=== PATIENT | male | born 1960 | race Caucasian/White ===

== ENCOUNTER 2018-05-02 15:52 | Inpatient (IN) | payer OTHER ==
[~2018-05-02] VITALS: Ht 182.9 cm; Wt 170.1 kg
[2018-05-02] VITALS (10 sets, daily range): BP systolic 89–129; BP diastolic 33–74
[~2018-05-02 15:52] MED LIST: PIPERACILLIN /TAZOBACTAM 2.25 G in IV D5W 50 ML IV ONE
[2018-05-02] MEDS ORDERED: IV NS 0.9% 1,000 ML BAG IV ONE ×2 (16:30→19:30)
[2018-05-02 17:00] LABS: APPEARANCE,URINE Slightly Cloudy (CLEAR); BILIRUBIN,URINE SMALL (NEGATIVE); BLOOD, URINE Negative Ery/uL (NEGATIVE); COLOR,URINE Dark (YELLOW); KETONES,URINE Negative (NEGATIVE); LEUKOCYTE ESTERASE ,URINE Negative (NEGATIVE); NITRITE, URINE Negative (NEGATIVE); PH,URINE 5.5 (5.0-8.0); PROTEIN,URINE >=300 mg/dl (NEGATIVE); UGLUCOSE 100 MG/DL mg/dL (NEGATIVE); UROBILINOGEN,URINE 0.2 EU/dL (0.2)
[2018-05-02 17:10] LABS: ABG BASE EXCESS -5.8 mmol/L; ABG OXYGEN SATURATION 93.2 % (92.0-98.5); ABG PH 7.191 (7.350-7.450); ABG PO2 72.2 mmHg (75.0-100.0); AaDO2 141.7 mmHg; MetHb 0.5 % (0.0-1.5); O2Hb 91.8 % (94.0-97.0); SITE, ABG Left Brachial; VENT MODE, BG 5L NC
[2018-05-02 17:18] LABS: BACTERIA,URINE Few /HPF (None Seen); HYALINE CASTS, URINE Moderate /LPF (None Seen); RBC,URINE NONE SEEN /HPF (0-2); SQUAMOUS EPITHELIAL CELL,UR None Seen /HPF (None Seen); URINE AMORPHOUS PHOSPHATES Few /HPF (None Seen); WBC,URINE NONE SEEN /HPF (0-3)
[2018-05-02] MEDS ORDERED: PROPOFOL 100 ML ONE ×2 (17:23→19:26)
[2018-05-02] MEDS ORDERED: SUCCINYLCHOLINE CHLORIDE 20 MG/ML VIAL IV ONE (17:30)
[2018-05-02] MEDS ORDERED: ETOMIDATE 2 MG/ML VIAL IV ONE (17:30)
[2018-05-02] MEDS ORDERED: PROPOFOL 100 ML IV PRN (18:00)
[2018-05-02 19:02] LABS: BASOPHILS # (AUTO) 0.1 /CMM (0.0-0.2); BASOPHILS % (AUTO) 0.9 % (0.0-2.0); EOSINOPHILS % (AUTO) 1.7 % (0.0-6.0); HEMATOCRIT 36 % (39-51); HEMOGLOBIN 11.4 g/dL (13.5-17.5); LYMPHOCYTES # (AUTO) 0.8 /CMM (0.8-4.8); LYMPHOCYTES % (AUTO) 12.9 % (20.0-44.0); MEAN CORPUSCULAR HGB CONC 32 g/dl (31.0-36.0); MEAN CORPUSCULAR VOLUME 98 fL (80-96); MONOCYTES # (AUTO) 0.9 /CMM (0.1-1.30); NEUTROPHILS # (AUTO) 4.5 /CMM (1.8-8.9); NEUTROPHILS % (AUTO) 70.5 % (43.0-81.0); PLATELET COUNT (AUTO) 263 /CMM (150-450); RED BLOOD CELL COUNT(AUTO) 3.64 MIL/uL (4.5-6.0); WHITE BLOOD COUNT (AUTO) 6.4 K/uL (4.3-11.0)
[2018-05-02] MEDS ORDERED: ATROPINE SULFATE 1 MG/10 ML DISP.SYRIN ONE (19:10)
[2018-05-02 19:11] LABS: CALCIUM, SERUM 9.2 mg/dL (8.5-10.1); CARBON DIOXIDE 26 mmol/L (21-32); CHLORIDE 116 mmol/L (98-107); CREATININE 3.4 mg/dL (0.6-1.3); GLUCOSE 193 mg/dL (74-106); POTASSIUM 5.2 mmol/L (3.5-5.1); SODIUM SERUM 148 mmol/L (136-145); UREA NITROGEN, BLOOD 34 mg/dL (7-18)
[2018-05-02 19:25] LABS: ACETAMINOPHEN 0 ug/ml (10-30); ALANINE AMINOTRANSFERASE 27 U/L (12-78); ALBUMIN 2.4 g/dL (3.4-5.0); ALCOHOL, BLOOD < 3 mg/dL (0-0); ALKALINE PHOSPHATASE 127 U/L (46-116); ASPARTATE AMINOTRANSFERASE 33 U/L (15-37); BILIRUBIN,DIRECT 0.2 mg/dL (0.0-0.2); BILIRUBIN,TOTAL 0.5 mg/dL (0.2-1.0)
[2018-05-02 19:26] LABS: SALICYLATE 0.6 mg/dL (2.8-20.0)
[2018-05-02] MEDS ORDERED: ATROPINE SULFATE 1 MG/10 ML DISP.SYRIN IV ONE (19:30)
[2018-05-02] MEDS ORDERED: LOSA100T31 PO (20:09)
[2018-05-02] MEDS ORDERED: SOTA80TA PO (20:09)
[2018-05-02] MEDS ORDERED: FENO145T35 PO (20:09)
[2018-05-02] MEDS ORDERED: POTA8TAB8 PO (20:09)
[2018-05-02] MEDS ORDERED: OMEG1CAP55 PO (20:09)
[2018-05-02] MEDS ORDERED: ASPI-1169 PO (20:09)
[2018-05-02] MEDS ORDERED: PIOG45TA5 PO (20:09)
[2018-05-02] MEDS ORDERED: METH5TAB6 PO (20:09)
[2018-05-02] MEDS ORDERED: ATOR40TA PO (20:09)
[2018-05-02] MEDS ORDERED: TRAM50TA2 PO (20:09)
[2018-05-02] MEDS ORDERED: APIX5TAB PO (20:09)
[2018-05-02] MEDS ORDERED: CARV12.52 PO (20:09)
[2018-05-02] MEDS ORDERED: ALLO100T PO (20:09)
[2018-05-02] MEDS ORDERED: NIFE30TA89 PO (20:09)
[2018-05-02] MEDS ORDERED: FURO80TA3 PO (20:09)
[2018-05-02] MEDS ORDERED: GABA-534 PO (20:09)
[2018-05-02] MEDS ORDERED: SITA50TA PO (20:09)
[2018-05-02] MEDS ORDERED: METO5TAB7 PO (20:09)
[2018-05-02] MEDS ORDERED: GLIP5TAB13 PO (20:09)
[2018-05-02 20:11] LABS: SERUM AMMONIA 17 umol/L (11-32)
[2018-05-02 20:33] LABS: ABG OXYGEN SATURATION 92.2 % (92.0-98.5); ABG PCO2 37.1 mmHg (35.0-45.0); ABG PH 7.367 (7.350-7.450); ABG PO2 59.8 mmHg (75.0-100.0); AaDO2 110.5 mmHg; COHb 0.9 % (0.5-1.5); MetHb 0.5 % (0.0-1.5); O2Hb 90.9 % (94.0-97.0); PEEP,BG 5 cm H2O; SITE, ABG Right Radial; VENT MODE, BG A/C 18 650 30% +5; VT, ABG 650 mL
[2018-05-02 22:08] LABS: BAND % (MANUAL) 2 % (0.0-5.0); LYMPHOCYTES % (MANUAL) 12 % (16-48); MONOCYTES % (MANUAL) 10 % (0-11.0); NEUTROPHILS % (MANUAL) 76 (42-76)
[2018-05-02] MEDS: IV 1/2NS 1000 ML 1,000 ML IV PRN (22:15)
[2018-05-02] MEDS: PANTOPRAZOLE 40 MG VIAL IV SCH (22:15)
[2018-05-02] MEDS: PROPOFOL 100 ML IV PRN (22:36)
[2018-05-02] MEDS ORDERED: DEXTROSE 50%-WATER 50 ML DISP.SYRIN IV PRN (23:00)
[2018-05-02] MEDS ORDERED: PIPERACILLIN /TAZOBACTAM 2.25 G VIAL IV ONE (23:56)
[2018-05-03] VITALS (36 sets, daily range): BP systolic 106–149; BP diastolic 58–102
[2018-05-03] MEDS: BLOOD SUGAR DIAGNOSTIC 1 EACH STRIP IN SCH ×4 (01:05→17:08)
[2018-05-03] MEDS: PROPOFOL 100 ML IV PRN ×9 (01:24→21:59)
[2018-05-03] MEDS: IPRATROPIUM NEB FS 0.5 MG/2.5 ML AMPUL.NEB NEB SCH ×4 (01:50→20:13)
[2018-05-03 04:09] LABS: BASOPHILS # (AUTO) 0.1 /CMM (0.0-0.2); BASOPHILS % (AUTO) 0.9 % (0.0-2.0); EOSINOPHILS % (AUTO) 3.3 % (0.0-6.0); HEMATOCRIT 34 % (39-51); HEMOGLOBIN 11.2 g/dL (13.5-17.5); LYMPHOCYTES # (AUTO) 1.3 /CMM (0.8-4.8); LYMPHOCYTES % (AUTO) 18.7 % (20.0-44.0); MEAN CORPUSCULAR HGB CONC 33 g/dl (31.0-36.0); MEAN CORPUSCULAR VOLUME 96 fL (80-96); MONOCYTES % (AUTO) 14.9 % (2.0-12.0); NEUTROPHILS # (AUTO) 4.2 /CMM (1.8-8.9); NEUTROPHILS % (AUTO) 62.2 % (43.0-81.0); PLATELET COUNT (AUTO) 199 /CMM (150-450); RED BLOOD CELL COUNT(AUTO) 3.56 MIL/uL (4.5-6.0); WHITE BLOOD COUNT (AUTO) 6.8 K/uL (4.3-11.0)
[2018-05-03 04:25] LABS: ALBUMIN 2.3 g/dL (3.4-5.0); BILIRUBIN,TOTAL 0.5 mg/dL (0.2-1.0); CALCIUM, SERUM 9.2 mg/dL (8.5-10.1); CREATININE 3.4 mg/dL (0.6-1.3); MAGNESIUM 1.7 mg/dL (1.8-2.4); TOTAL PROTEIN, SERUM 5.8 g/dL (6.4-8.2)
[2018-05-03 04:31] LABS: THYROID STIMULATING HORMONE 0.808 uIU/mL (0.358-3.74)
[2018-05-03] MEDS ORDERED: PIPERACILLIN /TAZOBACTAM 2.25 G in IV D5W 50 ML IV SCH (05:00)
[2018-05-03] MEDS ORDERED: ETOMIDATE 2 MG/ML VIAL IV ONE (06:58)
[2018-05-03] MEDS ORDERED: SUCCINYLCHOLINE CHLORIDE 20 MG/ML VIAL IV ONE (06:58)
[2018-05-03] MEDS ORDERED: ALBUTEROL FS 2.5 MG/0.5 ML VIAL.NEB NEB SCH (07:35)
[2018-05-03] MEDS ORDERED: Z GUARD REMEDY 2 OZ OINT TP PRN (08:30)
[2018-05-03] MEDS: METHIMAZOLE (5MG) 5 MG TABLET PO SCH (08:43)
[2018-05-03] MEDS: ALLOPURINOL 100 MG TABLET PO SCH ×2 (08:43→17:05)
[2018-05-03] MEDS: ASPIRIN 81 MG TAB.CHEW PO SCH (08:43)
[2018-05-03] MEDS: ATORVASTATIN 40 MG TABLET PO SCH (08:43)
[2018-05-03] MEDS: Z GUARD REMEDY 2 OZ OINT TP SCH (08:44)
[2018-05-03 08:51] LABS: ABG BASE EXCESS -3.8 mmol/L; ABG PCO2 33.6 mmHg (35.0-45.0); ABG PH 7.398 (7.350-7.450); ABG PO2 67.6 mmHg (75.0-100.0); AaDO2 106.8 mmHg; COHb 0.5 % (0.5-1.5); MetHb 0.6 % (0.0-1.5); PEEP,BG 5 cm H2O; SITE, ABG Left Radial; VT, ABG 650 mL
[2018-05-03] MEDS ORDERED: FUROSEMIDE 40 MG/4 ML VIAL IV SCH (09:00)
[2018-05-03] MEDS: APIXABAN 5 MG TABLET PO SCH ×2 (09:42→17:05)
[2018-05-03] MEDS: PIPERACILLIN /TAZOBACTAM 3.375 G in IV D5W 100 ML IV SCH ×2 (10:40→17:05)
[2018-05-03] MEDS: SOTALOL HCL 80 MG TABLET PO SCH ×2 (10:40→17:05)
[2018-05-03] MEDS: INSULIN REGULAR, HUMAN 100 UNIT/ML 3 ML VIAL SQ PRN ×2 (12:15→17:08)
[2018-05-03] MEDS: ALBUTEROL FS 2.5 MG/0.5 ML VIAL.NEB NEB SCH ×2 (13:48→20:13)
[2018-05-03] MEDS: IV 1/2NS 1000 ML 1,000 ML IV PRN (17:00)
[2018-05-03] MEDS: FENOFIBRATE NANOCRYS (145 MG) 145 MG TABLET PO SCH (17:05)
[2018-05-03] MEDS: Magnesium 1GM/D5W 100ML PREMIX 100 ML IV SCH ×2 (18:41→20:00)
[2018-05-03] MEDS ORDERED: Magnesium 1GM/D5W 100ML PREMIX PIGGYBACK IV ONE (19:00)
[2018-05-03] MEDS: PANTOPRAZOLE 40 MG VIAL IV SCH (21:16)
[2018-05-04] VITALS (29 sets, daily range): BP systolic 131–171; BP diastolic 60–109
[2018-05-04] MEDS: PIPERACILLIN /TAZOBACTAM 3.375 G in IV D5W 100 ML IV SCH ×3 (00:16→17:25)
[2018-05-04] MEDS: BLOOD SUGAR DIAGNOSTIC 1 EACH STRIP IN SCH ×4 (00:16→17:25)
[2018-05-04] MEDS: PROPOFOL 100 ML IV PRN ×4 (00:16→07:47)
[2018-05-04] MEDS: INSULIN REGULAR, HUMAN 100 UNIT/ML 3 ML VIAL SQ PRN ×4 (01:08→17:51)
[2018-05-04] MEDS: IPRATROPIUM NEB FS 0.5 MG/2.5 ML AMPUL.NEB NEB SCH ×4 (01:39→20:01)
[2018-05-04 04:20] LABS: BASOPHILS # (AUTO) 0.1 /CMM (0.0-0.2); EOSINOPHILS % (AUTO) 4.6 % (0.0-6.0); HEMATOCRIT 33 % (39-51); LYMPHOCYTES # (AUTO) 1.2 /CMM (0.8-4.8); LYMPHOCYTES % (AUTO) 20.7 % (20.0-44.0); MEAN CORPUSCULAR HGB CONC 33 g/dl (31.0-36.0); MEAN CORPUSCULAR VOLUME 95 fL (80-96); MONOCYTES # (AUTO) 0.9 /CMM (0.1-1.30); MONOCYTES % (AUTO) 15.6 % (2.0-12.0); NEUTROPHILS # (AUTO) 3.4 /CMM (1.8-8.9); NEUTROPHILS % (AUTO) 58.1 % (43.0-81.0); PLATELET COUNT (AUTO) 186 /CMM (150-450); RED BLOOD CELL COUNT(AUTO) 3.49 MIL/uL (4.5-6.0); WHITE BLOOD COUNT (AUTO) 5.9 K/uL (4.3-11.0)
[2018-05-04 04:22] LABS: CALCIUM, SERUM 9.1 mg/dL (8.5-10.1); PHOSPHORUS 2.3 mg/dL (2.5-4.9); POTASSIUM 3.1 mmol/L (3.5-5.1)
[2018-05-04 05:24] LABS: EOSINOPHILS % (MANUAL) 7 % (0-4); LYMPHOCYTES % (MANUAL) 18 % (16-48); MONOCYTES % (MANUAL) 9 % (0-11.0); NEUTROPHILS % (MANUAL) 66 (42-76)
[2018-05-04] MEDS: ALBUTEROL FS 2.5 MG/0.5 ML VIAL.NEB NEB SCH ×3 (07:46→20:01)
[2018-05-04] MEDS ORDERED: DC PROPOFOL WHEN EXTUBATED XX PRN (08:00)
[2018-05-04] MEDS: ALLOPURINOL 100 MG TABLET PO SCH ×2 (08:38→17:26)
[2018-05-04] MEDS: ATORVASTATIN 40 MG TABLET PO SCH (08:38)
[2018-05-04] MEDS: ASPIRIN 81 MG TAB.CHEW PO SCH (08:38)
[2018-05-04] MEDS: METHIMAZOLE (5MG) 5 MG TABLET PO SCH (08:38)
[2018-05-04] MEDS: SOTALOL HCL 80 MG TABLET PO SCH ×2 (08:38→17:26)
[2018-05-04] MEDS: APIXABAN 5 MG TABLET PO SCH ×2 (08:51→17:25)
[2018-05-04] MEDS ORDERED: POTASSIUM CHLORIDE 20 MEQ TAB.PRT.SR PO ONE (09:00)
[2018-05-04] MEDS: Z GUARD REMEDY 2 OZ OINT TP SCH (09:43)
[2018-05-04 09:45] LABS: ABG BASE EXCESS -2.7 mmol/L; ABG OXYGEN SATURATION 93.8 % (92.0-98.5); ABG PCO2 34.7 mmHg (35.0-45.0); ABG PH 7.408 (7.350-7.450); ABG PO2 74.3 mmHg (75.0-100.0); AaDO2 98.8 mmHg; COHb 0.1 % (0.5-1.5); MetHb 0.8 % (0.0-1.5); SITE, ABG Right Radial
[2018-05-04] MEDS ORDERED: IV NS 0.9% 1,000 ML BAG IV ONE (10:30)
[2018-05-04] MEDS ORDERED: K PHOS NEUTRAL 250 MG TABLET PO ONE (11:00)
[2018-05-04] MEDS ORDERED: IV NS 0.9% 1,000 ML IV ONE (11:00)
[2018-05-04] MEDS ORDERED: HYDROCODONE/APAP 5/325MG 1 EACH TABLET PO PRN (14:30)
[2018-05-04] MEDS ORDERED: ACETAMINOPHEN 325 MG TABLET PO PRN (14:30)
[2018-05-04] MEDS: FENOFIBRATE NANOCRYS (145 MG) 145 MG TABLET PO SCH (17:26)
[2018-05-04] MEDS: PANTOPRAZOLE 40 MG VIAL IV SCH (21:32)
[2018-05-05] VITALS (25 sets, daily range): BP systolic 124–167; BP diastolic 52–111
[2018-05-05] MEDS: BLOOD SUGAR DIAGNOSTIC 1 EACH STRIP IN SCH ×4 (00:14→18:09)
[2018-05-05] MEDS: PIPERACILLIN /TAZOBACTAM 3.375 G in IV D5W 100 ML IV SCH ×3 (01:00→17:39)
[2018-05-05] MEDS: IPRATROPIUM NEB FS 0.5 MG/2.5 ML AMPUL.NEB NEB SCH ×4 (01:16→19:35)
[2018-05-05 04:52] LABS: CALCIUM, SERUM 9.3 mg/dL (8.5-10.1); CREATININE 2.7 mg/dL (0.6-1.3); POTASSIUM 3.7 mmol/L (3.5-5.1)
[2018-05-05] MEDS: INSULIN REGULAR, HUMAN 100 UNIT/ML 3 ML VIAL SQ PRN ×3 (05:44→18:07)
[2018-05-05] MEDS: ALBUTEROL FS 2.5 MG/0.5 ML VIAL.NEB NEB SCH ×3 (07:56→19:35)
[2018-05-05 08:19] LABS: ABG BASE EXCESS -2.9 mmol/L; ABG OXYGEN SATURATION 93.3 % (92.0-98.5); ABG PCO2 47.7 mmHg (35.0-45.0); ABG PO2 74.2 mmHg (75.0-100.0); AaDO2 156.1 mmHg; COHb 0.9 % (0.5-1.5); MetHb 0.7 % (0.0-1.5); O2Hb 91.8 % (94.0-97.0); SITE, ABG Left Radial; VENT MODE, BG 5 LNC
[2018-05-05] MEDS: ASPIRIN 81 MG TAB.CHEW PO SCH (09:11)
[2018-05-05] MEDS: METHIMAZOLE (5MG) 5 MG TABLET PO SCH (09:11)
[2018-05-05] MEDS: ALLOPURINOL 100 MG TABLET PO SCH ×2 (09:11→17:47)
[2018-05-05] MEDS: APIXABAN 5 MG TABLET PO SCH ×2 (09:11→17:41)
[2018-05-05] MEDS: ATORVASTATIN 40 MG TABLET PO SCH (09:11)
[2018-05-05] MEDS: SOTALOL HCL 80 MG TABLET PO SCH ×2 (09:13→17:41)
[2018-05-05] MEDS: Z GUARD REMEDY 2 OZ OINT TP SCH (09:20)
[2018-05-05] MEDS: FENOFIBRATE NANOCRYS (145 MG) 145 MG TABLET PO SCH (17:42)
[2018-05-05] MEDS ORDERED: DEXTROSE 50%-WATER 50 ML DISP.SYRIN IV PRN (20:00)
[2018-05-05] MEDS: PANTOPRAZOLE 40 MG VIAL IV SCH (20:33)
[2018-05-05] MEDS: BLOOD SUGAR DIAGNOSTIC 1 EACH STRIP VI SCH (21:33)
[2018-05-05] MEDS: *INSULIN REGULAR(HUMULIN R)HUM 100 UNIT/ML VIAL SQ PRN (21:35)
[2018-05-06] VITALS (41 sets, daily range): BP systolic 126–174; BP diastolic 69–107
[2018-05-06] MEDS: PIPERACILLIN /TAZOBACTAM 3.375 G in IV D5W 100 ML IV SCH ×3 (00:14→17:33)
[2018-05-06] MEDS: IPRATROPIUM NEB FS 0.5 MG/2.5 ML AMPUL.NEB NEB SCH ×4 (01:01→19:38)
[2018-05-06 04:25] LABS: BASOPHILS # (AUTO) 0.1 /CMM (0.0-0.2); BASOPHILS % (AUTO) 1.9 % (0.0-2.0); EOSINOPHILS % (AUTO) 5.7 % (0.0-6.0); HEMATOCRIT 33 % (39-51); HEMOGLOBIN 10.7 g/dL (13.5-17.5); LYMPHOCYTES % (AUTO) 19.6 % (20.0-44.0); MEAN CORPUSCULAR HGB CONC 32 g/dl (31.0-36.0); MEAN CORPUSCULAR VOLUME 96 fL (80-96); MONOCYTES # (AUTO) 0.8 /CMM (0.1-1.30); MONOCYTES % (AUTO) 16.5 % (2.0-12.0); NEUTROPHILS # (AUTO) 2.8 /CMM (1.8-8.9); NEUTROPHILS % (AUTO) 56.3 % (43.0-81.0); PLATELET COUNT (AUTO) 190 /CMM (150-450)
[2018-05-06 04:35] LABS: CALCIUM, SERUM 9.3 mg/dL (8.5-10.1); CREATININE 2.5 mg/dL (0.6-1.3); POTASSIUM 3.6 mmol/L (3.5-5.1)
[2018-05-06] MEDS: BLOOD SUGAR DIAGNOSTIC 1 EACH STRIP VI SCH ×4 (05:59→21:55)
[2018-05-06] MEDS: INSULIN REGULAR, HUMAN 100 UNIT/ML 3 ML VIAL SQ PRN ×3 (06:02→17:47)
[2018-05-06] MEDS: ALBUTEROL FS 2.5 MG/0.5 ML VIAL.NEB NEB SCH ×3 (08:31→19:37)
[2018-05-06] MEDS: SOTALOL HCL 80 MG TABLET PO SCH ×2 (09:30→17:32)
[2018-05-06] MEDS: METHIMAZOLE (5MG) 5 MG TABLET PO SCH (09:30)
[2018-05-06] MEDS: APIXABAN 5 MG TABLET PO SCH ×2 (09:30→17:33)
[2018-05-06] MEDS: ALLOPURINOL 100 MG TABLET PO SCH ×2 (09:30→17:32)
[2018-05-06] MEDS: ATORVASTATIN 40 MG TABLET PO SCH (09:30)
[2018-05-06] MEDS: ASPIRIN 81 MG TAB.CHEW PO SCH (09:30)
[2018-05-06] MEDS: Z GUARD REMEDY 2 OZ OINT TP SCH (09:31)
[2018-05-06 14:35] LABS: ABG BASE EXCESS -2.9 mmol/L; ABG OXYGEN SATURATION 94.6 % (92.0-98.5); ABG PCO2 52.4 mmHg (35.0-45.0); ABG PH 7.282 (7.350-7.450); ABG PO2 83.4 mmHg (75.0-100.0); AaDO2 90.7 mmHg; COHb 0.3 % (0.5-1.5); MetHb 1.2 % (0.0-1.5); O2Hb 93.2 % (94.0-97.0); SITE, ABG Right Brachial; VENT MODE, BG NASAL CANNULA
[2018-05-06] MEDS: FENOFIBRATE NANOCRYS (145 MG) 145 MG TABLET PO SCH (17:32)
[2018-05-06] MEDS: PANTOPRAZOLE 40 MG VIAL IV SCH (21:36)
[2018-05-06] MEDS: *INSULIN REGULAR(HUMULIN R)HUM 100 UNIT/ML VIAL SQ PRN (21:58)
[2018-05-07] VITALS (46 sets, daily range): BP systolic 106–176; BP diastolic 46–111
[2018-05-07] MEDS: PIPERACILLIN /TAZOBACTAM 3.375 G in IV D5W 100 ML IV SCH ×3 (00:11→16:21)
[2018-05-07] MEDS: IPRATROPIUM NEB FS 0.5 MG/2.5 ML AMPUL.NEB NEB SCH ×4 (01:29→20:20)
[2018-05-07 05:15] LABS: CALCIUM, SERUM 9.4 mg/dL (8.5-10.1); CREATININE 2.4 mg/dL (0.6-1.3); POTASSIUM 3.9 mmol/L (3.5-5.1)
[2018-05-07] MEDS: BLOOD SUGAR DIAGNOSTIC 1 EACH STRIP VI SCH ×4 (05:50→22:02)
[2018-05-07] MEDS: INSULIN REGULAR, HUMAN 100 UNIT/ML 3 ML VIAL SQ PRN ×3 (05:52→17:54)
[2018-05-07] MEDS: ALBUTEROL FS 2.5 MG/0.5 ML VIAL.NEB NEB SCH ×3 (07:48→20:20)
[2018-05-07] MEDS: SOTALOL HCL 80 MG TABLET PO SCH ×2 (08:35→17:52)
[2018-05-07] MEDS: APIXABAN 5 MG TABLET PO SCH ×2 (08:35→17:53)
[2018-05-07] MEDS: ATORVASTATIN 40 MG TABLET PO SCH (08:36)
[2018-05-07] MEDS: ALLOPURINOL 100 MG TABLET PO SCH ×2 (08:36→17:52)
[2018-05-07] MEDS: ASPIRIN 81 MG TAB.CHEW PO SCH (08:36)
[2018-05-07] MEDS: METHIMAZOLE (5MG) 5 MG TABLET PO SCH (08:36)
[2018-05-07] MEDS: Z GUARD REMEDY 2 OZ OINT TP SCH (08:37)
[2018-05-07 08:55] LABS: ABG BASE EXCESS -0.4 mmol/L; ABG OXYGEN SATURATION 91.7 % (92.0-98.5); ABG PCO2 58.5 mmHg (35.0-45.0); ABG PH 7.284 (7.350-7.450); ABG PO2 66.1 mmHg (75.0-100.0); AaDO2 64.5 mmHg; COHb 0.4 % (0.5-1.5); MetHb 0.5 % (0.0-1.5); O2Hb 90.9 % (94.0-97.0); SITE, ABG Right Radial; VENT MODE, BG 2L N/C
[2018-05-07] MEDS: AMLODIPINE BESYLATE 2.5 MG TABLET PO SCH (09:17)
[2018-05-07] MEDS: hydrALAZINE HCL IV 20 MG VIAL IV PRN (12:49)
[2018-05-07] MEDS: FENOFIBRATE NANOCRYS (145 MG) 145 MG TABLET PO SCH (17:52)
[2018-05-07] MEDS: PANTOPRAZOLE 40 MG VIAL IV SCH (20:47)
[2018-05-07] MEDS: *INSULIN REGULAR(HUMULIN R)HUM 100 UNIT/ML VIAL SQ PRN (22:03)
[2018-05-08] VITALS (45 sets, daily range): BP systolic 94–186; BP diastolic 42–104
[2018-05-08] MEDS: PIPERACILLIN /TAZOBACTAM 3.375 G in IV D5W 100 ML IV SCH ×3 (00:40→17:08)
[2018-05-08] MEDS: IPRATROPIUM NEB FS 0.5 MG/2.5 ML AMPUL.NEB NEB SCH ×4 (01:19→19:39)
[2018-05-08 05:01] LABS: BASOPHILS # (AUTO) 0.1 /CMM (0.0-0.2); BASOPHILS % (AUTO) 2.1 % (0.0-2.0); EOSINOPHILS % (AUTO) 6.4 % (0.0-6.0); HEMATOCRIT 33 % (39-51); HEMOGLOBIN 10.8 g/dL (13.5-17.5); LYMPHOCYTES # (AUTO) 1.2 /CMM (0.8-4.8); LYMPHOCYTES % (AUTO) 22.4 % (20.0-44.0); MEAN CORPUSCULAR HGB CONC 33 g/dl (31.0-36.0); MEAN CORPUSCULAR VOLUME 95 fL (80-96); MONOCYTES # (AUTO) 0.9 /CMM (0.1-1.30); MONOCYTES % (AUTO) 16.6 % (2.0-12.0); NEUTROPHILS # (AUTO) 2.9 /CMM (1.8-8.9); NEUTROPHILS % (AUTO) 52.5 % (43.0-81.0); PLATELET COUNT (AUTO) 195 /CMM (150-450); RED BLOOD CELL COUNT(AUTO) 3.49 MIL/uL (4.5-6.0); WHITE BLOOD COUNT (AUTO) 5.5 K/uL (4.3-11.0)
[2018-05-08] MEDS: hydrALAZINE HCL IV 20 MG VIAL IV PRN (05:05)
[2018-05-08 05:06] LABS: CALCIUM, SERUM 9.3 mg/dL (8.5-10.1); CREATININE 2.1 mg/dL (0.6-1.3); POTASSIUM 3.6 mmol/L (3.5-5.1)
[2018-05-08] MEDS: BLOOD SUGAR DIAGNOSTIC 1 EACH STRIP VI SCH ×4 (05:21→22:26)
[2018-05-08] MEDS: INSULIN REGULAR, HUMAN 100 UNIT/ML 3 ML VIAL SQ PRN ×2 (05:22→17:55)
[2018-05-08] MEDS: ALBUTEROL FS 2.5 MG/0.5 ML VIAL.NEB NEB SCH ×3 (08:03→19:39)
[2018-05-08 08:54] LABS: ABG BASE EXCESS 0.7 mmol/L; ABG OXYGEN SATURATION 94.1 % (92.0-98.5); ABG PCO2 50.6 mmHg (35.0-45.0); ABG PH 7.345 (7.350-7.450); AaDO2 63.9 mmHg; COHb 0.2 % (0.5-1.5); MetHb 0.6 % (0.0-1.5); O2Hb 93.3 % (94.0-97.0); SITE, ABG Right Radial; VENT MODE, BG 2L N/C
[2018-05-08] MEDS: AMLODIPINE BESYLATE 2.5 MG TABLET PO SCH (09:04)
[2018-05-08] MEDS: ATORVASTATIN 40 MG TABLET PO SCH (09:04)
[2018-05-08] MEDS: METHIMAZOLE (5MG) 5 MG TABLET PO SCH (09:04)
[2018-05-08] MEDS: ASPIRIN 81 MG TAB.CHEW PO SCH (09:04)
[2018-05-08] MEDS: SOTALOL HCL 80 MG TABLET PO SCH ×2 (09:05→17:05)
[2018-05-08] MEDS: APIXABAN 5 MG TABLET PO SCH ×2 (09:05→17:05)
[2018-05-08] MEDS: Z GUARD REMEDY 2 OZ OINT TP SCH (09:06)
[2018-05-08] MEDS: ALLOPURINOL 100 MG TABLET PO SCH ×2 (09:11→17:03)
[2018-05-08] MEDS: *INSULIN REGULAR(HUMULIN R)HUM 100 UNIT/ML VIAL SQ PRN ×2 (12:28→22:27)
[2018-05-08] MEDS: FENOFIBRATE NANOCRYS (145 MG) 145 MG TABLET PO SCH (18:06)
[2018-05-08] MEDS: PANTOPRAZOLE 40 MG VIAL IV SCH (20:59)
[2018-05-08] MEDS ORDERED: IV NS 0.9% 100 ML IV PRN (22:00)
[2018-05-09] VITALS (40 sets, daily range): BP systolic 148–194; BP diastolic 82–124
[2018-05-09] MEDS: PIPERACILLIN /TAZOBACTAM 3.375 G in IV D5W 100 ML IV SCH ×3 (00:05→17:20)
[2018-05-09] MEDS: IPRATROPIUM NEB FS 0.5 MG/2.5 ML AMPUL.NEB NEB SCH ×4 (01:07→19:19)
[2018-05-09] MEDS: hydrALAZINE HCL IV 20 MG VIAL IV PRN ×4 (04:10→15:40)
[2018-05-09 04:36] LABS: BASOPHILS # (AUTO) 0.1 /CMM (0.0-0.2); BASOPHILS % (AUTO) 1.2 % (0.0-2.0); EOSINOPHILS % (AUTO) 7.8 % (0.0-6.0); HEMATOCRIT 34 % (39-51); HEMOGLOBIN 11.2 g/dL (13.5-17.5); LYMPHOCYTES # (AUTO) 1.3 /CMM (0.8-4.8); LYMPHOCYTES % (AUTO) 22.2 % (20.0-44.0); MEAN CORPUSCULAR HGB CONC 33 g/dl (31.0-36.0); MEAN CORPUSCULAR VOLUME 94 fL (80-96); MONOCYTES # (AUTO) 0.9 /CMM (0.1-1.30); MONOCYTES % (AUTO) 15.3 % (2.0-12.0); NEUTROPHILS % (AUTO) 53.5 % (43.0-81.0); PLATELET COUNT (AUTO) 180 /CMM (150-450); RED BLOOD CELL COUNT(AUTO) 3.62 MIL/uL (4.5-6.0); WHITE BLOOD COUNT (AUTO) 5.6 K/uL (4.3-11.0)
[2018-05-09 04:51] LABS: CALCIUM, SERUM 9.2 mg/dL (8.5-10.1); CREATININE 2.1 mg/dL (0.6-1.3); POTASSIUM 3.7 mmol/L (3.5-5.1)
[2018-05-09] MEDS: ALBUTEROL FS 2.5 MG/0.5 ML VIAL.NEB NEB SCH ×3 (07:46→19:19)
[2018-05-09] MEDS: BLOOD SUGAR DIAGNOSTIC 1 EACH STRIP VI SCH ×4 (08:13→22:48)
[2018-05-09] MEDS: SOTALOL HCL 80 MG TABLET PO SCH ×2 (08:39→17:21)
[2018-05-09] MEDS: APIXABAN 5 MG TABLET PO SCH ×2 (08:40→17:22)
[2018-05-09] MEDS: ATORVASTATIN 40 MG TABLET PO SCH (08:40)
[2018-05-09] MEDS: ASPIRIN 81 MG TAB.CHEW PO SCH (08:40)
[2018-05-09] MEDS: METHIMAZOLE (5MG) 5 MG TABLET PO SCH (08:40)
[2018-05-09] MEDS: ALLOPURINOL 100 MG TABLET PO SCH ×2 (08:40→17:22)
[2018-05-09] MEDS ORDERED: NITROGLYCERIN 30 GM TUBE TP SCH (09:00)
[2018-05-09] MEDS: Z GUARD REMEDY 2 OZ OINT TP SCH (09:08)
[2018-05-09] MEDS ORDERED: AMLODIPINE BESYLATE 2.5 MG TABLET PO SCH (09:30)
[2018-05-09 09:43] LABS: ABG OXYGEN SATURATION 95.6 % (92.0-98.5); ABG PCO2 49.9 mmHg (35.0-45.0); ABG PO2 83.2 mmHg (75.0-100.0); AaDO2 57.6 mmHg; COHb 0.4 % (0.5-1.5); MetHb 0.7 % (0.0-1.5); O2Hb 94.5 % (94.0-97.0); SITE, ABG Right Radial
[2018-05-09] MEDS: *INSULIN REGULAR(HUMULIN R)HUM 100 UNIT/ML VIAL SQ PRN ×3 (12:41→21:26)
[2018-05-09] MEDS ORDERED: AMLODIPINE BESYLATE 2.5 MG TABLET PO ONE (17:00)
[2018-05-09] MEDS ORDERED: CLONIDINE HCL 0.1 MG TABLET PO PRN (17:00)
[2018-05-09] MEDS: FENOFIBRATE NANOCRYS (145 MG) 145 MG TABLET PO SCH (17:22)
[2018-05-09] MEDS: PROSOURCE / PROSTAT (PYXIS) 30 ML UDC PO SCH (17:58)
[2018-05-09] MEDS: PANTOPRAZOLE 40 MG VIAL IV SCH (21:08)
[2018-05-10] VITALS (7 sets, daily range): BP systolic 115–160; BP diastolic 88–98
[2018-05-10] MEDS: IPRATROPIUM NEB FS 0.5 MG/2.5 ML AMPUL.NEB NEB SCH ×4 (01:01→19:15)
[2018-05-10 05:32] LABS: BASOPHILS # (AUTO) 0.2 /CMM (0.0-0.2); EOSINOPHILS % (AUTO) 7.1 % (0.0-6.0); HEMATOCRIT 33 % (39-51); HEMOGLOBIN 11.1 g/dL (13.5-17.5); LYMPHOCYTES # (AUTO) 1.2 /CMM (0.8-4.8); LYMPHOCYTES % (AUTO) 22.5 % (20.0-44.0); MEAN CORPUSCULAR HGB CONC 33 g/dl (31.0-36.0); MEAN CORPUSCULAR VOLUME 93 fL (80-96); MONOCYTES # (AUTO) 0.9 /CMM (0.1-1.30); MONOCYTES % (AUTO) 16.7 % (2.0-12.0); NEUTROPHILS # (AUTO) 2.6 /CMM (1.8-8.9); NEUTROPHILS % (AUTO) 50.7 % (43.0-81.0); PLATELET COUNT (AUTO) 173 /CMM (150-450); RED BLOOD CELL COUNT(AUTO) 3.55 MIL/uL (4.5-6.0); WHITE BLOOD COUNT (AUTO) 5.2 K/uL (4.3-11.0)
[2018-05-10 05:39] LABS: CALCIUM, SERUM 9.4 mg/dL (8.5-10.1); POTASSIUM 3.4 mmol/L (3.5-5.1)
[2018-05-10] MEDS: ALBUTEROL FS 2.5 MG/0.5 ML VIAL.NEB NEB SCH ×3 (07:35→19:15)
[2018-05-10] MEDS: METHIMAZOLE (5MG) 5 MG TABLET PO SCH (08:38)
[2018-05-10] MEDS: ATORVASTATIN 40 MG TABLET PO SCH (08:38)
[2018-05-10] MEDS: ASPIRIN 81 MG TAB.CHEW PO SCH (08:39)
[2018-05-10] MEDS: ALLOPURINOL 100 MG TABLET PO SCH ×2 (08:39→17:08)
[2018-05-10] MEDS: SOTALOL HCL 80 MG TABLET PO SCH ×2 (08:40→17:08)
[2018-05-10] MEDS: APIXABAN 5 MG TABLET PO SCH ×2 (08:40→17:08)
[2018-05-10] MEDS: AMLODIPINE BESYLATE 5 MG TABLET PO SCH (08:40)
[2018-05-10] MEDS: Z GUARD REMEDY 2 OZ OINT TP SCH (08:41)
[2018-05-10] MEDS: PROSOURCE / PROSTAT (PYXIS) 30 ML UDC PO SCH ×3 (08:41→17:00)
[2018-05-10] MEDS: INSULIN REGULAR, HUMAN 100 UNIT/ML 3 ML VIAL SQ PRN ×4 (08:42→21:45)
[2018-05-10] MEDS: BLOOD SUGAR DIAGNOSTIC 1 EACH STRIP VI SCH ×4 (08:42→21:42)
[2018-05-10] MEDS ORDERED: AMLO5TAB9 PO (09:14)
[2018-05-10] MEDS: CARVEDILOL 12.5 MG TABLET PO SCH ×2 (10:05→20:57)
[2018-05-10] MEDS ORDERED: POTASSIUM CHLORIDE 20 MEQ TAB.PRT.SR PO SCH (10:30)
[2018-05-10] MEDS: FENOFIBRATE NANOCRYS (145 MG) 145 MG TABLET PO SCH (17:07)
[2018-05-10 17:58] LABS: ABG OXYGEN SATURATION 91.6 % (92.0-98.5); ABG PCO2 52.4 mmHg (35.0-45.0); ABG PH 7.339 (7.350-7.450); ABG PO2 66.6 mmHg (75.0-100.0); AaDO2 78.5 mmHg; COHb 0.4 % (0.5-1.5); MetHb 0.6 % (0.0-1.5); O2Hb 90.7 % (94.0-97.0); SITE, ABG Right Radial; VENT MODE, BG NASAL CANNULA
[2018-05-10] MEDS: PANTOPRAZOLE 40 MG VIAL IV SCH (20:57)
[2018-05-11] VITALS: BP 145/95
[2018-05-11] MEDS: IPRATROPIUM NEB FS 0.5 MG/2.5 ML AMPUL.NEB NEB SCH ×2 (01:21→07:21)
[2018-05-11 04:00] VITALS: BP 134/91
[2018-05-11 06:46] LABS: CALCIUM, SERUM 9.5 mg/dL (8.5-10.1); POTASSIUM 3.5 mmol/L (3.5-5.1)
[2018-05-11] MEDS: ALBUTEROL FS 2.5 MG/0.5 ML VIAL.NEB NEB SCH (07:21)
[2018-05-11] MEDS: BLOOD SUGAR DIAGNOSTIC 1 EACH STRIP VI SCH (07:44)
[2018-05-11 08:00] VITALS: BP 168/85
[2018-05-11] MEDS: ALLOPURINOL 100 MG TABLET PO SCH (08:26)
[2018-05-11] MEDS: AMLODIPINE BESYLATE 5 MG TABLET PO SCH (08:27)
[2018-05-11] MEDS: METHIMAZOLE (5MG) 5 MG TABLET PO SCH (08:27)
[2018-05-11] MEDS: ASPIRIN 81 MG TAB.CHEW PO SCH (08:27)
[2018-05-11] MEDS: ATORVASTATIN 40 MG TABLET PO SCH (08:27)
[2018-05-11] MEDS: CARVEDILOL 12.5 MG TABLET PO SCH (08:27)
[2018-05-11] MEDS: APIXABAN 5 MG TABLET PO SCH (08:27)
[2018-05-11 08:28] VITALS: BP 168/85
[2018-05-11] MEDS: SOTALOL HCL 80 MG TABLET PO SCH (08:28)
[2018-05-11] MEDS: PROSOURCE / PROSTAT (PYXIS) 30 ML UDC PO SCH (08:28)
[2018-05-11] MEDS: Z GUARD REMEDY 2 OZ OINT TP SCH (08:28)
== END 2018-05-11 09:32 | DRG 137 ==
LOC: ER 15:58 → ICU 19:10 → TELE-TD 05-09 17:59 → TELE1 05-10 12:09
PROVIDERS: ADMIT Internal Medicine; ATTEND Internal Medicine
PROC: B548ZZA Ultrasonography of Superior Vena Cava, Guidance (ICD-10-PCS; principal; 2018-05-02)
PROC: 5A1945Z Respiratory Ventilation, 24-96 Consecutive Hours (ICD-10-PCS; principal; 2018-05-02)
PROC: 02HV33Z Insertion of Infusion Device into Superior Vena Cava, Percutaneous Approach (ICD-10-PCS; principal; 2018-05-02)
PROC: 0BH17EZ Insertion of Endotracheal Airway into Trachea, Via Natural or Artificial Opening (ICD-10-PCS; principal; 2018-05-02)
DX: J69.0 Pneumonitis due to inhalation of food and vomit (principal); J96.21 Acute and chronic respiratory failure with hypoxia; G92 Toxic encephalopathy; E87.4 Mixed disorder of acid-base balance; I50.33 Acute on chronic diastolic (congestive) heart failure; N17.9 Acute kidney failure, unspecified; N18.3 Chronic kidney disease, stage 3 (moderate); I13.0 Hypertensive heart and chronic kidney disease with heart failure and stage 1 through stage 4 chronic kidney disease, or unspecified chronic kidney disease; E11.22 Type 2 diabetes mellitus with diabetic chronic kidney disease; J96.22 Acute and chronic respiratory failure with hypercapnia; E78.5 Hyperlipidemia, unspecified; E87.6 Hypokalemia; E66.2 Morbid (severe) obesity with alveolar hypoventilation; I48.2 Chronic atrial fibrillation; Z79.84 Long term (current) use of oral hypoglycemic drugs; E87.0 Hyperosmolality and hypernatremia; E05.90 Thyrotoxicosis, unspecified without thyrotoxic crisis or storm; Z79.82 Long term (current) use of aspirin; J98.11 Atelectasis; Z68.43 Body mass index [BMI] 50.0-59.9, adult; I87.2 Venous insufficiency (chronic) (peripheral); Z96.662 Presence of left artificial ankle joint
CPT/HCPCS: 31720; 36415; 36569; 36600; 70450-TC; 71045-TC; 80048-TC; 80053-TC; 80076-TC; 80305; 81000-TC; 82140-TC; 82803-TC; 82962-TC; 83605-TC; 83735-TC; 84100-TC; 84443-TC; 84484-TC; 85025-TC; 85730-TC; 87040-TC; 87081-TC; 87086-TC; 92526; 92611-TC; 93307-TC; 93971-TC; 94002-TC; 94003-TC; 94760-TC; 94799-TC; 99082-TC; A6402; A6403; C1751; C9113; G0378; G0480; J0330; J0360; J0461; J1815; J1940; J2543; J3475; J3480; J3490; J7030; J7060